=== PATIENT | male | born 1980 | race Caucasian/White ===

== ENCOUNTER 2018-03-02 14:44 | Emergency (ER) | payer MEDICAID ==
[~2018-03-02] VITALS: Ht 182.9 cm; Wt 91.7 kg
[2018-03-02 14:58] VITALS: BP 130/74
[2018-03-02] MEDS ORDERED: DEXAMETHASONE 4 MG TABLET ONE (15:39)
[2018-03-02] MEDS ORDERED: GABA100C PO (15:49)
[2018-03-02] MEDS ORDERED: DEXAMETHASONE 4 MG TABLET PO ONE (16:00)
== END 2018-03-02 16:18 | disposition home or self-care (01) ==
LOC: ED 15:55
DX: H92.02 Otalgia, left ear (principal); J02.9 Acute pharyngitis, unspecified
CPT/HCPCS: 87081; 87147; 87880; 99284